=== PATIENT | female | born 1960 | race Caucasian/White ===

== ENCOUNTER 2017-05-17 08:00 | Outpatient (CLI) | payer BC | END 2017-05-17 08:01 | disposition home or self-care (01) | LOC: BICMAMMO 08:00 | PROVIDERS: ATTEND Internal Medicine Endocrinology, Diabetes & Metabolism | DX: Z13.820 Encounter for screening for osteoporosis (principal); M85.88 Other specified disorders of bone density and structure, other site; Z78.0 Asymptomatic menopausal state | CPT/HCPCS: 77080 ==

== ENCOUNTER 2018-05-17 10:15 | Outpatient (CLI) | payer BC ==
--- NOTE | 2018-05-17 12:08 | BD ---
DEXA BONE DENSITY: HISTORY: Osteoporosis. COMPARISON: None. FINDINGS: Lumbar Spine: BMD (g/cm2) L1 0.742 T-Score: -2.3, -1.1 L2 0.767 T-Score: -2.4, -1.1 L3 0.790 T-Score: -2.7, -1.3 L4 0.856 T-Score: -1.9, -0.4 L1-L4 0.791 T-Score: -2.3, -1.0 Femoral Neck: 0.645 T-Score: -1.8, -0.6 Total Femur: 0.866 T-Score: -0.6, 0.3 Impression: Lumbar spine: WHO calcification osteopenia. Fracture risk is increased. Femoral neck: WHO calcification osteopenia. 10-year fracture risk for a major osteoporotic fracture 13%. Hip frac ture 1.7%. POS: [facility]
== END 2018-05-17 10:16 | disposition home or self-care (01) ==
LOC: BICMAMMO 10:15
PROVIDERS: ATTEND Internal Medicine
DX: Z12.31 Encounter for screening mammogram for malignant neoplasm of breast (principal); M81.0 Age-related osteoporosis without current pathological fracture; M85.89 Other specified disorders of bone density and structure, multiple sites; Z80.3 Family history of malignant neoplasm of breast
CPT/HCPCS: 77063; 77067; 77080

== ENCOUNTER 2019-05-17 12:55 | Outpatient (CLI) | payer BC ==
--- NOTE | 2019-05-17 15:19 | MMO ---
Bilateral MAMMO Bilat Screen [facility]. CLINICAL HISTORY: Patient is 58 years old and is seen for screening. The patient has the following family history of breast cancer: maternal grandmother, at age 65. The patient has no personal history of cancer. VIEWS: The views performed were: bilateral craniocaudal with tomosynthesis; bilateral mediolateral oblique with tomosynthesis; and bilateral exaggerated craniocaudal. FILMS COMPARED: The present examination has been compared to prior imaging studies performed at [facility] on 03/05/2011, 03/17/2012, 12/25/2014 and 05/17/2018. This study has been interpreted with the assistance of computer-aided detection. MAMMOGRAM FINDINGS: The breasts are heterogeneously dense, which could obscure a lesion on mammography. There are no suspicious masses, suspicious calcifications, or new areas of architectural distortion. IMPRESSION: THERE IS NO MAMMOGRAPHIC EVIDENCE OF MALIGNANCY. A ROUTINE FOLLOW-UP MAMMOGRAM IN 1 YEAR IS RECOMMENDED. THE RESULTS OF THIS EXAM WERE SENT TO THE PATIENT. ACR BI-RADS Category 1 - Negative MAMMOGRAPHY NOTE: 1. A negative mammogram report should not delay a biopsy if a dominant of clinically suspicious mass is present. 2. Approximately 10% to 15% of breast cancers are not detected by mammography. 3. Adenosis and dense breasts may obscure an underlying neoplasm. Reported by: KASSIE GONZÁLES MD Electonically Signed: [id number]
--- NOTE | 2019-05-17 15:22 | BD ---
DEXA BONE DENSITY STUDY: Date: 05/17/19 HISTORY: Postmenopausal. FINDINGS: Lumbar Spine: BMD (g/cm2 L1 0.780 T-Score: -1.9 L2 0.818 T-Score: -1.9 L3 0.808 T-Score: -2.5 L4 0.897 T-Score: -1.5 Total 0.829 T-Score: -2.0 Left Femoral Neck: 0.652 T-Score: -1.8 Total Femur: 0.873 T-Score: -0.6 IMPRESSION: 1. Osteopenia of lumbar spine and left femoral neck. 2. 10 year fracture risk for major osteoporotic fracture is 13% and for a hip fracture is 1.6%. Thes e fracture probabilities are calculated for an untreated patient. POS: [facility]
== END 2019-05-17 12:56 | disposition home or self-care (01) ==
LOC: BICMAMMO 12:55
PROVIDERS: ATTEND Internal Medicine
DX: Z12.31 Encounter for screening mammogram for malignant neoplasm of breast (principal); Z13.820 Encounter for screening for osteoporosis; M85.89 Other specified disorders of bone density and structure, multiple sites; Z80.3 Family history of malignant neoplasm of breast
CPT/HCPCS: 77063; 77067; 77080

== ENCOUNTER 2023-02-22 08:19 | Outpatient (CLI) | payer BC | END 2023-02-22 08:20 | disposition home or self-care (01) | LOC: BICMAMMO 08:19 | PROVIDERS: ATTEND Internal Medicine | DX: M81.0 Age-related osteoporosis without current pathological fracture (principal); M85.89 Other specified disorders of bone density and structure, multiple sites | CPT/HCPCS: 77080 ==